=== PATIENT | male | born 1975 | race Hispanic/Latino ===

== ENCOUNTER → 2019-03-21 | Day surgery (SDC) | payer BC ==
[~2019-03-21] MED LIST: FENTANYL CITRATE/PF 100MCG/2 ML INJ ONE; MIDAZOLAM HCL 2 MG/2 ML VIAL ONE; MINOCYCLINE HCL50 MG PO; OMEPRAZOLE40 MG PO; PANTOPRAZOLE SO40 MG PO; [UNRECOGNIZED DRUG - REMARK] PO
--- OUTSIDE RECORDS SUMMARY | 2019-03-21 06:33 | XMS REPORT ---
Author Author [facility] Address Unknown Phone Unavailable Care Team Providers Care Quality Assurance Manager Name Role Phone Unavailable Unavailable Problems This patient has no known problems. Allergies, Adverse Reactions, Alerts This patient has no known allergies or adverse reactions. Medications This patient has no known medications. Encounters Start Date/Time End Date/Time Encounter Type Admission Type Attending [facility] Facility Care Department Encounter ID 2019-02-04 14:45:00 2019-02-04 14:45:00 Emergency [facility] [id number] 2019-02-04 11:56:51 2019-02-04 11:56:51 Emergency [facility] [id number] 2018-01-03 11:14:34 2018-01-03 11:14:34 Emergency [facility] [id number] 2018-01-03 08:40:35 2018-01-03 08:40:35 Emergency [facility] [id number] 2017-10-19 21:15:43 2017-10-19 21:15:43 Emergency [facility] [id number] 2017-10-19 10:34:48 2017-10-19 10:34:48 Outpatient [facility] [id number]
--- NOTE | 2019-03-21 07:05 | NUR ---
SPIRITUAL CARE - Pre-Surgery Assessment: Pt in bed. Pt reported supportive attention from family and friends. Intervention: I provided pastoral presence, hospitality, and sympathetic listening. I acquainted pt with availability of blueprint reproducer while hospitalized. Outcome: Pt expressed appreciation for visit. No need for follow up indicated at this time. [facility] Spiritual Care Department O: [phone] Pager: [phone] ([phone] number calling from)
[2019-03-21 09:10] VITALS: BP 113/61
== END | disposition home or self-care (01) ==
LOC: OR 06:30
PROVIDERS: ATTEND Internal Medicine Gastroenterology
DX: R13.10 Dysphagia, unspecified (principal); K29.70 Gastritis, unspecified, without bleeding; K44.9 Diaphragmatic hernia without obstruction or gangrene; K21.9 Gastro-esophageal reflux disease without esophagitis; K58.9 Irritable bowel syndrome, unspecified; R00.1 Bradycardia, unspecified; Z01.810 Encounter for preprocedural cardiovascular examination; Z80.0 Family history of malignant neoplasm of digestive organs
CPT/HCPCS: 43239; 93005; J2250; J3010

== ENCOUNTER → 2019-03-28 | Day surgery (SDC) | payer BC ==
[~2019-03-28] MED LIST changes: +PROPOFOL IV EMULSION 10 MG/ML 50 ML VIAL ONE
[2019-03-28 09:23] VITALS: BP 114/68
== END | disposition home or self-care (01) ==
LOC: OR 06:36
PROVIDERS: ATTEND Internal Medicine Gastroenterology
DX: K30 Functional dyspepsia (principal); R13.10 Dysphagia, unspecified; Z87.19 Personal history of other diseases of the digestive system; D12.4 Benign neoplasm of descending colon; K57.90 Diverticulosis of intestine, part unspecified, without perforation or abscess without bleeding; K64.8 Other hemorrhoids; K57.30 Diverticulosis of large intestine without perforation or abscess without bleeding
CPT/HCPCS: 45384; J2250; J2704; J3010; 45378

== ENCOUNTER 2019-06-18 09:17 | Emergency (ER) | payer BC ==
[~2019-06-18] VITALS: Ht 165.1 cm; Wt 62.6 kg
[~2019-06-18 09:17] MED LIST changes: -FENTANYL CITRATE/PF 100MCG/2 ML INJ ONE; -MIDAZOLAM HCL 2 MG/2 ML VIAL ONE; -PROPOFOL IV EMULSION 10 MG/ML 50 ML VIAL ONE
[2019-06-18 09:26] VITALS: BP 105/66
[2019-06-18] MEDS ORDERED: KETOROLAC TROMETHAMINE 60 MG/2 ML VIAL IM ONE (09:30)
--- NOTE | 2019-06-18 10:00 | Diagnostic Imaging Report ---
Exam: Elbow 3 views History: Pain Comparison: None. Findings: No fracture or malalignment. Joint spaces preserved. No abnormal soft tissue calcification or soft tissue defect. Impression: No acute osseous abnormality Signed by: Dr. Mandeep Enrique M.D. on 06/18/2019 9:57 AM
--- NOTE | 2019-06-18 10:00 | Diagnostic Imaging Report ---
Exam: Lumbar spine 2 views History: Back pain Comparison: None. Findings: No fracture or malalignment. Disc spaces preserved. No abnormal soft tissue calcification or soft tissue defect. Impression: No acute osseous abnormality Signed by: Dr. Mandeep Enrique M.D. on 06/18/2019 9:57 AM
== END 2019-06-18 10:06 | disposition home or self-care (01) ==
LOC: ER 09:17
DX: M54.5 Low back pain (principal); X50.1XXA Overexertion from prolonged static or awkward postures, initial encounter; Y92.008 Other place in unspecified non-institutional (private) residence as the place of occurrence of the external cause
CPT/HCPCS: 72100; 73080; 99283; J1885

== ENCOUNTER 2019-08-20 16:03 | Emergency (ER) | payer BC, OTHER ==
[~2019-08-20] VITALS: Ht 165.1 cm; Wt 64.1 kg
[2019-08-20] MEDS ORDERED: KETOROLAC TROMETHAMINE 60 MG/2 ML VIAL IM NR (16:30)
--- NOTE | 2019-08-20 17:05 | Diagnostic Imaging Report ---
EXAMINATION: CT of the abdomen and pelvis without contrast. TECHNIQUE: Spiral CT images of the abdomen and pelvis were performed from the lung bases to the lesser trochanters. No intravenous contrast was given per renal stone protocol. Coronal and sagittal reformatted images were obtained. COMPARISON: None. CLINICAL HISTORY:Left flank pain x3 days DISCUSSION: ABSENCE OF INTRAVENOUS CONTRAST DECREASES SENSITIVITY FOR DETECTION OF FOCAL LESIONS AND VASCULAR PATHOLOGY. ABDOMEN/PELVIS: LOWER THORAX: 2 mm nodule lateral right lower lobe. 3 mm nodule left lower lobe series 2 image 8. HEPATOBILIARY:No focal hepatic lesions. No intrahepatic biliary ductal dilation. The gallbladder is unremarkable. SPLEEN: No splenomegaly or focal splenic lesion. PANCREAS: No focal masses or ductal dilatation. ADRENALS: No adrenal nodules. KIDNEYS/URETERS: No hydronephrosis, calculi, or solid or cystic mass lesions. PELVIC ORGANS/BLADDER: Urinary bladder is incompletely distended but otherwise unremarkable. Prostate and seminal vesicles appear normal. PERITONEUM/RETROPERITONEUM: No ascites or pneumoperitoneum. LYMPH NODES: No pelvic sidewall, retroperitoneal, or mesenteric lymphadenopathy. VESSELS: Limited evaluation in the absence of intravenous contrast. The abdominal aorta is non-aneurysmal. GI TRACT: The large bowel shows no distension or wall thickening. Appendix is normal. No small bowel dilatation to suggest obstruction. BONES AND SOFT TISSUES: No osseous destructive lesions. No focal soft tissue abnormalities. IMPRESSION: No acute intra-abdominal or pelvic CT abnormalities. No urolithiasis per clinical query. Small bilateral lower lobe pulmonary nodules may be assessed for stability by CT scan of the chest without contrast in one year if the patient is at high risk for malignancy per Fleischner Society 2017 guidelines. Signed by: Dr. Kelvin Coles M.D. on 08/20/2019 5:02 PM
[2019-08-20 17:40] VITALS: BP 105/65
== END 2019-08-20 17:34 | disposition home or self-care (01) ==
LOC: FSED 16:03
DX: R10.9 Unspecified abdominal pain (principal); M54.5 Low back pain; R91.8 Other nonspecific abnormal finding of lung field
CPT/HCPCS: 74176; 81003; 96372; 99283; J1885

== ENCOUNTER 2020-03-24 08:19 | Emergency (ER) | payer BC, OTHER ==
[~2020-03-24] VITALS: Ht 165.1 cm; Wt 64.0 kg
[2020-03-24] MEDS ORDERED: IOPAMIDOL 370 MG/ML 200 ML INFUS..BTL INJ ONE (08:58)
[2020-03-24] MEDS ORDERED: SODIUM CHLORIDE 0.9% 50ML 50 ML ONE (08:58)
[2020-03-24 09:32] LABS: BASOPHILS % 0.2 % (0.0-1.0); EOSINOPHILS % 0.7 % (0.0-6.0); HEMATOCRIT 42.3 % (38.2-49.6); HEMOGLOBIN 13.9 g/dL (14.0-18.0); LYMPHOCYTES # (AUTO) 1.4 (1.0-3.2); LYMPHOCYTES % 31.6 % (18.0-39.1); MEAN CORPUSCULAR HEMOGLOBIN 29.5 pg (28-32); MEAN CORPUSCULAR HGB CONC 32.9 g/dL (31-35); MEAN CORPUSCULAR VOLUME 89.8 fL (81-99); MONOCYTES # (AUTO) 0.3 (0.2-0.8); MONOCYTES % 7.6 % (4.4-11.3); NEUTROPHILS # (AUTO) 2.7 (2.1-6.9); NEUTROPHILS % 59.5 % (38.7-80.0); PLATELET COUNT 307 x10e3/uL (140-360); RED BLOOD COUNT 4.71 x10e6/uL (4.3-5.7); RED CELL DISTRIBUTION WIDTH 12.7 % (11.7-14.4)
[2020-03-24] MEDS ORDERED: CIPRO500 MG PO (11:07)
[2020-03-24] MEDS ORDERED: NAPROSYN500 MG PO (11:09)
== END 2020-03-24 11:29 | disposition home or self-care (01) ==
LOC: FSED 08:32
DX: R10.32 Left lower quadrant pain (principal); N41.9 Inflammatory disease of prostate, unspecified; N45.1 Epididymitis; R11.0 Nausea; K21.9 Gastro-esophageal reflux disease without esophagitis
CPT/HCPCS: 36415; 74160; 80048; 80076; 81003; 85025; 99284; Q9967

== ENCOUNTER → 2020-07-10 | Outpatient (CLI) | payer OTHER ==
[~2020-07-10] MED LIST changes: +CIPRO500 MG PO; +COVID-19 VACC, MRNA(MODERNA)/PF 100 MCG/0.5 ML VIAL IM ONE; +NAPROSYN500 MG PO
== END ==
LOC: VACCPMC 09:20
DX: Z23 Encounter for immunization (principal); Z20.822 Contact with and (suspected) exposure to COVID-19
CPT/HCPCS: 0011A; 91301

== ENCOUNTER → 2020-08-07 | Outpatient (CLI) | payer OTHER | END | disposition home or self-care (01) | LOC: VACCPMC 14:21 | DX: Z23 Encounter for immunization (principal); Z20.822 Contact with and (suspected) exposure to COVID-19 | CPT/HCPCS: 91301 ==

== ENCOUNTER 2020-09-15 09:32 | Emergency (ER) | payer OTHER ==
[~2020-09-15] VITALS: Ht 165.1 cm; Wt 65.5 kg
[~2020-09-15 09:32] MED LIST changes: -COVID-19 VACC, MRNA(MODERNA)/PF 100 MCG/0.5 ML VIAL IM ONE
[2020-09-15] MEDS ORDERED: FINASTERIDE1 MG PO (09:55)
[2020-09-15] MEDS ORDERED: ALFUZOSIN HCL10 MG (09:55)
[2020-09-15] MEDS ORDERED: KETOROLAC TROMETHAMINE 60 MG/2 ML VIAL IM NR (10:15)
[2020-09-15] MEDS ORDERED: TYLENOL # 31 EA PO (11:58)
[2020-09-15 12:02] VITALS: BP 98/62
== END 2020-09-15 12:08 | disposition home or self-care (01) ==
LOC: FSED 09:56
DX: M25.511 Pain in right shoulder (principal); M47.896 Other spondylosis, lumbar region; M21.70 Unequal limb length (acquired), unspecified site; K21.9 Gastro-esophageal reflux disease without esophagitis
CPT/HCPCS: 72100; 73030; 96372; 99283; J1885

== ENCOUNTER 2021-03-15 20:01 | Emergency (ER) | payer OTHER ==
[~2021-03-15] VITALS: Ht 165.1 cm; Wt 61.2 kg
[~2021-03-15 20:01] MED LIST changes: +ALFUZOSIN HCL10 MG; +FINASTERIDE1 MG PO; +TYLENOL # 31 EA PO
[2021-03-15] MEDS ORDERED: CIPRO500 MG PO (20:28)
[2021-03-15] MEDS ORDERED: KETOROLAC TROMETHAMINE 30 MG/ML VIAL IM STA (20:29)
[2021-03-15] MEDS ORDERED: CIPROFLOXACIN 500 MG TAB PO SCH (20:30)
[2021-03-15] MEDS ORDERED: NAPROXEN250 MG PO (20:32)
[2021-03-15] MEDS ORDERED: KETOROLAC TROMETHAMINE 60 MG/2 ML VIAL ONE (20:47)
[2021-03-15] MEDS ORDERED: CIPROFLOXACIN 500 MG TAB ONE (20:47)
== END 2021-03-15 21:00 | disposition home or self-care (01) ==
LOC: FSED 20:05
DX: N45.1 Epididymitis (principal); N41.9 Inflammatory disease of prostate, unspecified; R10.32 Left lower quadrant pain
CPT/HCPCS: 99283; J1885

== ENCOUNTER → 2021-05-14 | Outpatient (CLI) | payer BC ==
[~2021-05-14] MED LIST changes: +DIATRIZOATE MEGL/DIATRIZOA SOD 30 ML BTL PO ONE; +IOPAMIDOL 370 MG/ML 200 ML INFUS..BTL INJ ONE; +NAPROXEN250 MG PO; +SODIUM CHLORIDE 0.9% 50ML 50 ML ONE
== END ==
LOC: CT 15:33
PROVIDERS: ATTEND Internal Medicine Gastroenterology
DX: R10.32 Left lower quadrant pain (principal)
CPT/HCPCS: 74177; Q9967

== ENCOUNTER → 2021-07-11 | Outpatient (CLI) | payer BC ==
[~2021-07-11] MED LIST changes: -DIATRIZOATE MEGL/DIATRIZOA SOD 30 ML BTL PO ONE; -IOPAMIDOL 370 MG/ML 200 ML INFUS..BTL INJ ONE; -SODIUM CHLORIDE 0.9% 50ML 50 ML ONE
== END ==
LOC: RAD 14:04
PROVIDERS: ATTEND Internal Medicine
DX: R91.1 Solitary pulmonary nodule (principal); J40 Bronchitis, not specified as acute or chronic; J85.0 Gangrene and necrosis of lung
CPT/HCPCS: 71046

== ENCOUNTER → 2022-02-23 | Outpatient (CLI) | payer BC | LOC: US 14:35 | PROVIDERS: ATTEND Internal Medicine Gastroenterology | DX: R17 Unspecified jaundice (principal) | CPT/HCPCS: 76705 ==

== ENCOUNTER 2024-06-19 19:50 | Emergency (ER) | payer BC ==
[~2024-06-19] VITALS: Ht 165.1 cm; Wt 65.8 kg
[~2024-06-19 19:50] MED LIST changes: +DICYCLOMINE HCL20 MG PO
[2024-06-19 19:55] VITALS: PULSE 61; RESP 17; TEMP 97.8
[2024-06-19] MEDS: ACETAMINOPHEN 325 MG TAB PO ONE (20:57)
[2024-06-19] MEDS ORDERED: CYCLOBENZAPRINE5 MG PO (21:01)
[2024-06-19] MEDS ORDERED: IBUPROFEN800 MG PO (21:02)
[2024-06-19 21:03] VITALS: BP 126/68; O2SAT 100
== END 2024-06-19 21:09 | disposition home or self-care (01) ==
LOC: FSED 19:55
DX: M54.6 Pain in thoracic spine (principal); S29.012D Strain of muscle and tendon of back wall of thorax, subsequent encounter; M25.551 Pain in right hip; X50.0XXD Overexertion from strenuous movement or load, subsequent encounter
CPT/HCPCS: 99283